=== PATIENT | female | born 1960 | race African-American/Black ===

== ENCOUNTER 2019-09-06 08:35 | Day surgery (SDC) | payer MEDICARE, MEDICAID ==
[2019-09-05 17:01] VITALS: BMI 47.9
[2019-09-06 09:23] LABS: #Basophils 0.1 thou/uL (0.0-0.2); #Eosinphils 0.4 thou/uL (0.0-0.7); #Lymphocytes 2.2 thou/uL (1.20-3.40); #Monocytes 0.8 thou/uL (0.11-0.59); #Neutrophils 10.1 thou/uL (1.40-6.50); %Basophils 0.5 % (0.0-1.0); %Eosinophils 2.8 % (0.0-10.0); %Lymphocytes 15.9 % (21.0-51.0); %Monocytes 5.7 % (0.0-10.0); %Neutrophils 75.1 % (42.0-75.0); Hemoglobin 15.2 g/dL (12.0-16.0); Mean Corpuscular HGB CONC 33.4 g/dL (32.0-36.0); Mean Corpuscular Hemoglobin 28.2 pg (27.0-31.0); Mean Corpuscular Volume 84.5 fL (78.0-98.0); Mean Platelet Volume 6.7 fL (7.4-10.4); Platelet Count 317 thou/uL (130-400); Red Blood Cell (RBC) Count 5.37 mill/uL (4.20-5.40); White Blood Cell (WBC) Count 13.5 thou/uL (4.8-10.8)
[2019-09-06 09:32] LABS: INR-International Normal Ratio 1.3; PTT 31.1 SEC (22.9-36.1); Prothrombin Time 16.1 SEC (12.0-14.7)
[2019-09-06 09:41] LABS: Anion Gap 14 mmol/L (10-20); BUN (Urea Nitrogen) 12 mg/dL (9.8-20.1); Calc. Creatinine Clearance 121 mL/min (70-130); Calcium 9.9 mg/dL (7.8-10.44); Carbon Dioxide 32 mmol/L (22-29); Chloride 100 mmol/L (98-107); Estimated GFR-MDRD 61; Glucose 238 mg/dL (70-105); Potassium 3.7 mmol/L (3.5-5.1); Sodium 142 mmol/L (136-145)
[2019-09-06] MEDS ORDERED: Propofol 500 MG/50 ML VIAL ONE (10:57)
[2019-09-06] MEDS ORDERED: Midazolam HCl 2 mg/2 ml Vial ONE (11:08)
[2019-09-06] MEDS ORDERED: Fentanyl 100 MCG/2 ML VIAL ONE (11:09)
[2019-09-06] MEDS ORDERED: Lidocaine 1% (PF) 30 ML VIAL ONE ×2 (11:27→11:50)
== END 2019-09-06 14:50 | disposition home or self-care (01) ==
LOC: CCL 08:35
PROVIDERS: ATTEND Internal Medicine Cardiovascular Disease
DX: I42.8 Other cardiomyopathies (principal); E66.01 Morbid (severe) obesity due to excess calories; E11.9 Type 2 diabetes mellitus without complications; I10 Essential (primary) hypertension; I48.0 Paroxysmal atrial fibrillation; Z68.42 Body mass index [BMI] 45.0-49.9, adult; Z79.01 Long term (current) use of anticoagulants; Z79.4 Long term (current) use of insulin; Z79.899 Other long term (current) drug therapy
CPT/HCPCS: 33263; 80048; 85025; 85610; 85730; 93005; 93010; C1721; J2001; J2250; J2704; J3010